=== PATIENT | female | born 1960 | race Two or more races ===

== ENCOUNTER 2024-01-02 18:08 | Inpatient (IN) | payer MEDICAID, OTHER ==
[~2024-01-02] VITALS: Ht 154.9 cm; Wt 71.6 kg
[2024-01-02] MEDS: DEXTROSE (50%) 50ML SYRG IV ONE (18:15)
[2024-01-02] MEDS: DEXTROSE 50% SYRINGE 50 ML IV ONE (18:36)
[2024-01-02 18:39] LABS: Basophils # (auto) 0.1 10 ^3/uL (0-0.2); Basophils % (auto) 0.6 % (0.0-2.0); Eosinophils # (auto) 0 10 ^3/uL (0-0.8); Eosinophils % (auto) 0.4 % (0.0-7.0); Hematocrit 39.3 % (36.0-46.0); Hemoglobin 12.9 g/dL (12.2-16.2); Lymphocytes # (auto) 1.9 10 ^3/uL (0.4-5.4); Lymphocytes % (auto) 17.5 % (10.0-50.0); Mean Corpuscular Hemoglobin 29.2 pg (28.0-32.0); Mean Corpuscular Hgb Conc. 32.8 g/dL (32.0-36.0); Monocytes # (auto) 1.1 10 ^3/uL (0-1.3); Monocytes % (auto) 9.9 % (0.0-12.0); Neutrophils % (auto) 71.6 % (37.0-80.0); Platelet Count (auto) 296 10^3/uL (140-450); Red Blood Cells 4.41 10^6/uL (4.0-5.20); Red Cell Distribution Width 14.3 % (11.8-14.3); White Blood Cell 11.1 10^3/uL (4.4-10.8)
[2024-01-02 18:56] LABS: Alanine Aminotransferase 20 U/L (7-40); Albumin 3.7 g/dL (3.2-4.8); Alkaline Phosphatase 70 U/L (46-116); Anion Gap 9 (5-15); Aspartate Aminotransferase 26 U/L (13-40); BUN/Creatinine Ratio 6.8 (10.0-20.0); Blood Urea Nitrogen 36 mg/dL (9-23); Carbon Dioxide 21 mmol/L (20-30); Chloride 105 mmol/L (98-107); Glucose 53 mg/dL (74-106); Potassium 4.8 mmol/L (3.5-5.1); Sodium 135 mmol/L (136-145)
[2024-01-02 18:57] LABS: Bilirubin, Total 0.3 mg/dL (0.2-1.0); Total Protein 6.7 g/dL (5.7-8.2)
[2024-01-02 19:02] VITALS: PULSE 88; RESP 20; O2SAT 97
[2024-01-02 20:00] VITALS: RESP 15; O2SAT 95
[2024-01-02] MEDS: D5W/SOD CHL 0.45% 1,000 ML IV ONE (22:19)
[2024-01-02] MEDS ORDERED: MORPHINE SULFATE INJ 2 MG/ml SYRG IV PRN (23:45)
[2024-01-02] MEDS ORDERED: NITROGLYCERIN 0.4 MG SL TAB SL PRN (23:45)
[2024-01-02] MEDS ORDERED: ACETAMINOPHEN 325 MG TAB PO PRN (23:45)
[2024-01-02] MEDS ORDERED: DOCUSATE SOD 100 MG CAP PO PRN (23:45)
[2024-01-02] MEDS ORDERED: HYDROcodone-ACET 5/325MG TAB PO PRN (23:45)
[2024-01-03] MEDS: InsuLIN REG 1unit/0.01ml Soln (100units/ml) SC SCH
[2024-01-03] MEDS: ACCU-CHEK COMFORT CURVE STRIP VI SCH
[2024-01-03] MEDS ORDERED: D5W/SOD CHL 0.45% 1,000 ML IV ONE (00:30)
[2024-01-03] MEDS: D5W/SOD CHLO 0.9% 1,000 ML IV SCH ×2 (00:56→12:26)
[2024-01-03] MEDS: DEXTROSE (50%) 50ML SYRG IV PRN (01:37)
[2024-01-03 06:16] LABS: Basophils # (auto) 0 10 ^3/uL (0-0.2); Basophils % (auto) 0.5 % (0.0-2.0); Eosinophils # (auto) 0 10 ^3/uL (0-0.8); Eosinophils % (auto) 0.4 % (0.0-7.0); Hematocrit 35.1 % (36.0-46.0); Hemoglobin 12.1 g/dL (12.2-16.2); Lymphocytes # (auto) 1.7 10 ^3/uL (0.4-5.4); Lymphocytes % (auto) 19.9 % (10.0-50.0); Mean Corpuscular Hemoglobin 30.5 pg (28.0-32.0); Mean Corpuscular Hgb Conc. 34.5 g/dL (32.0-36.0); Mean Corpuscular Volume 88.4 fL (80.0-100.0); Monocytes # (auto) 0.7 10 ^3/uL (0-1.3); Monocytes % (auto) 8.3 % (0.0-12.0); Neutrophils # (auto) 6.2 10 ^3/uL (1.6-8.6); Neutrophils % (auto) 70.9 % (37.0-80.0); Platelet Count (auto) 292 10^3/uL (140-450); Red Blood Cells 3.97 10^6/uL (4.0-5.20); Red Cell Distribution Width 14.3 % (11.8-14.3); White Blood Cell 8.7 10^3/uL (4.4-10.8)
[2024-01-03 06:33] LABS: Alanine Aminotransferase 17 U/L (7-40); Albumin 3.4 g/dL (3.2-4.8); Alkaline Phosphatase 61 U/L (46-116); Anion Gap 8 (5-15); Aspartate Aminotransferase 25 U/L (13-40); BUN/Creatinine Ratio 7.8 (10.0-20.0); Blood Urea Nitrogen 41 mg/dL (9-23); Calcium 8.8 mg/dL (8.7-10.4); Carbon Dioxide 21 mmol/L (20-30); Chloride 105 mmol/L (98-107); Glucose 101 mg/dL (74-106); Potassium 5.2 mmol/L (3.5-5.1); Sodium 134 mmol/L (136-145)
[2024-01-03 06:34] LABS: Bilirubin, Total 0.2 mg/dL (0.2-1.0); Total Protein 6.1 g/dL (5.7-8.2)
[2024-01-03 08:03] VITALS: PULSE 82; RESP 12; O2SAT 93
[2024-01-03 11:18] LABS: Magnesium 1.9 mg/dL (1.6-2.6)
[2024-01-03 11:19] LABS: Phosphorus 3.5 mg/dL (2.4-5.1)
[2024-01-03] MEDS: cefTRIAXone 1GM/50ML D5W 50 ML IV ONE (13:23)
[2024-01-03 13:27] LABS: Urine Bacteria FEW /hpf (None Seen); Urine Blood TRACE /uL (Negative); Urine Clarity Clear (Clear); Urine Protein, UAD TRACE (Negative); Urine Specific Gravity 1.007 (1.001-1.035); Urine Urobilinogen Normal (Negative); Urine WBC 5 /hpf (0 - 5)
[2024-01-03 13:28] LABS: Urine Color Light-Yellow (Yellow)
[2024-01-03 13:40] LABS: Protein, Urine 27.4 mg/dL (0.0-11.9)
[2024-01-03 13:42] LABS: Amphetamine Screen, Urine Neg (NEGATIVE); Barbiturate Scree,Urine Neg (NEGATIVE); Benzodiazephine Screen, Urine Neg (NEGATIVE); Cannabinoid Screen, Urine Neg (NEGATIVE); Cocaine Screen, Urine Neg (NEGATIVE); Opiate Scree,Urine Neg (NEGATIVE); Phencyclidine Screen, Urine Neg (NEGATIVE)
[2024-01-03 13:43] LABS: Creatinine, Urine 22.6 mg/dL (30.0-125.0); Creatinine, Urine 22.75 mg/dL (30.0-125.0); Urine Protein/Creatinine Ratio 1.21
[2024-01-03 19:50] VITALS: PULSE 87; RESP 87; O2SAT 95
[2024-01-04] VITALS (7 sets, daily range): BP systolic 100–139; BP diastolic 62–72; PULSE 81–102; RESP 15–18; TEMP 98.1–98.8; O2SAT 94–96
[2024-01-04 06:19] LABS: Basophils # (auto) 0.1 10 ^3/uL (0-0.2); Basophils % (auto) 0.8 % (0.0-2.0); Eosinophils # (auto) 0.1 10 ^3/uL (0-0.8); Eosinophils % (auto) 1.2 % (0.0-7.0); Hematocrit 35.9 % (36.0-46.0); Hemoglobin 12.4 g/dL (12.2-16.2); Lymphocytes # (auto) 1.8 10 ^3/uL (0.4-5.4); Lymphocytes % (auto) 24.3 % (10.0-50.0); Mean Corpuscular Hemoglobin 30.6 pg (28.0-32.0); Mean Corpuscular Hgb Conc. 34.4 g/dL (32.0-36.0); Mean Corpuscular Volume 88.8 fL (80.0-100.0); Monocytes # (auto) 0.8 10 ^3/uL (0-1.3); Monocytes % (auto) 11.1 % (0.0-12.0); Neutrophils # (auto) 4.7 10 ^3/uL (1.6-8.6); Neutrophils % (auto) 62.6 % (37.0-80.0); Nucleated Red Blood Cells % 0.1 %; Platelet Count (auto) 267 10^3/uL (140-450); Red Blood Cells 4.04 10^6/uL (4.0-5.20); Red Cell Distribution Width 14.6 % (11.8-14.3); White Blood Cell 7.5 10^3/uL (4.4-10.8)
[2024-01-04 06:37] LABS: Alanine Aminotransferase 15 U/L (7-40); Albumin 3.4 g/dL (3.2-4.8); Alkaline Phosphatase 54 U/L (46-116); Anion Gap 7 (5-15); Aspartate Aminotransferase 18 U/L (13-40); BUN/Creatinine Ratio 7.3 (10.0-20.0); Blood Urea Nitrogen 37 mg/dL (9-23); Calcium 8.2 mg/dL (8.7-10.4); Carbon Dioxide 23 mmol/L (20-30); Chloride 111 mmol/L (98-107); Potassium 4.6 mmol/L (3.5-5.1); Sodium 141 mmol/L (136-145)
[2024-01-04 06:38] LABS: Bilirubin, Total 0.3 mg/dL (0.2-1.0)
[2024-01-04 06:42] LABS: Glucose 139 mg/dL (74-106)
[2024-01-04 08:43] LABS: Hepatitis B Surface Antigen Negative (Negative)
[2024-01-04 09:04] LABS: Hepatitis C Antibody Negative (Negative)
[2024-01-04] MEDS: cefTRIAXone 1GM/50ML D5W 50 ML IV SCH (09:28)
[2024-01-04] MEDS ORDERED: GLIM2TAB33 PO (14:11)
[2024-01-04] MEDS ORDERED: METF-372 PO (14:11)
[2024-01-04] MEDS ORDERED: AMLO1TAB23 PO (14:11)
[2024-01-04] MEDS: ERGOCALCIFEROL 50,000 UNIT(1.25MG) CAP PO SCH (16:24)
[2024-01-04] MEDS: SOD CHL 0.45% 1,000 ML IV SCH (16:25)
[2024-01-05] VITALS (8 sets, daily range): BP systolic 98–142; BP diastolic 45–76; PULSE 75–97; RESP 16–21; TEMP 97.8–98.6; O2SAT 93–98
[2024-01-05 06:47] LABS: Chloride 108 mmol/L (98-107); Sodium 139 mmol/L (136-145)
[2024-01-05 06:48] LABS: Anion Gap 6 (5-15); Calcium 8.6 mg/dL (8.7-10.4); Carbon Dioxide 25 mmol/L (20-30)
[2024-01-05 06:53] LABS: Glucose 121 mg/dL (74-106)
[2024-01-05 06:54] LABS: BUN/Creatinine Ratio 10.7 (10.0-20.0); Blood Urea Nitrogen 42 mg/dL (9-23)
[2024-01-05] MEDS ORDERED: DEXTROSE (50%) 50ML SYRG IV PRN (16:15)
[2024-01-05] MEDS ORDERED: ACCU-CHEK COMFORT CURVE STRIP VI SCH ×2 (17:00)
[2024-01-05] MEDS: InsuLIN REG 1unit/0.01ml Soln (100units/ml) SC SCH ×2 (18:01→21:26)
[2024-01-05] MEDS: ACCU-CHEK COMFORT CURVE STRIP VI SCH (18:01)
[2024-01-06] VITALS (8 sets, daily range): BP systolic 121–141; BP diastolic 59–73; PULSE 61–82; RESP 16–20; TEMP 97.9–98.6; O2SAT 95–98
[2024-01-06 07:42] LABS: Anion Gap 10 (5-15); Carbon Dioxide 23 mmol/L (20-30); Chloride 106 mmol/L (98-107); Potassium 3.6 mmol/L (3.5-5.1); Sodium 139 mmol/L (136-145)
[2024-01-06 07:49] LABS: BUN/Creatinine Ratio 13.9 (10.0-20.0); Blood Urea Nitrogen 41 mg/dL (9-23); Glucose 118 mg/dL (74-106)
[2024-01-06] MEDS: ONDANSETRON HCL 4 MG/2 ML VIAL IV PRN (10:06)
[2024-01-07] VITALS (8 sets, daily range): BP systolic 116–142; BP diastolic 50–70; PULSE 67–83; RESP 16–20; TEMP 97.8–98.8; O2SAT 95–98
[2024-01-07 06:45] LABS: Anion Gap 8 (5-15); Carbon Dioxide 24 mmol/L (20-30); Chloride 108 mmol/L (98-107); Sodium 140 mmol/L (136-145)
[2024-01-07 06:46] LABS: Calcium 9.2 mg/dL (8.7-10.4)
[2024-01-07 06:51] LABS: BUN/Creatinine Ratio 15.6 (10.0-20.0); Blood Urea Nitrogen 40 mg/dL (9-23); Glucose 127 mg/dL (74-106)
[2024-01-08] VITALS (8 sets, daily range): BP systolic 124–153; BP diastolic 58–76; PULSE 73–81; RESP 14–17; TEMP 97.8–98.4; O2SAT 95–96
[2024-01-08 06:53] LABS: Calcium 9.2 mg/dL (8.7-10.4); Chloride 110 mmol/L (98-107); Potassium 3.7 mmol/L (3.5-5.1); Sodium 140 mmol/L (136-145)
[2024-01-08 06:54] LABS: Anion Gap 8 (5-15); Carbon Dioxide 22 mmol/L (20-30)
[2024-01-08 06:59] LABS: BUN/Creatinine Ratio 17.9 (10.0-20.0); Blood Urea Nitrogen 34 mg/dL (9-23); Glucose 141 mg/dL (74-106)
[2024-01-09] VITALS (7 sets, daily range): BP systolic 138–166; BP diastolic 69–81; PULSE 72–79; RESP 16–18; TEMP 97.5–98.3; O2SAT 95–99
[2024-01-09 06:43] LABS: Anion Gap 7 (5-15); Calcium 9.2 mg/dL (8.7-10.4); Carbon Dioxide 25 mmol/L (20-30); Chloride 108 mmol/L (98-107); Potassium 3.6 mmol/L (3.5-5.1); Sodium 140 mmol/L (136-145)
[2024-01-09 06:48] LABS: BUN/Creatinine Ratio 17.5 (10.0-20.0); Blood Urea Nitrogen 30 mg/dL (9-23); Glucose 145 mg/dL (74-106)
[2024-01-10] VITALS (7 sets, daily range): BP systolic 107–155; BP diastolic 55–71; PULSE 57–79; RESP 15–20; TEMP 98–98.3; O2SAT 93–98
[2024-01-10 06:26] LABS: Calcium 9.2 mg/dL (8.7-10.4); Chloride 108 mmol/L (98-107); Potassium 3.4 mmol/L (3.5-5.1); Sodium 139 mmol/L (136-145)
[2024-01-10 06:27] LABS: Anion Gap 7 (5-15); Carbon Dioxide 24 mmol/L (20-30)
[2024-01-10 06:32] LABS: BUN/Creatinine Ratio 19.6 (10.0-20.0); Blood Urea Nitrogen 29 mg/dL (9-23); Glucose 185 mg/dL (74-106)
[2024-01-10] MEDS: POTASSIUM EFFERVESENT TAB 25 MEQ PO ONE (11:18)
[2024-01-11] VITALS (8 sets, daily range): BP systolic 135–156; BP diastolic 60–84; PULSE 63–78; RESP 16–18; TEMP 97.8–98.6; O2SAT 94–99
[2024-01-11 06:17] LABS: Chloride 110 mmol/L (98-107); Potassium 3.9 mmol/L (3.5-5.1); Sodium 141 mmol/L (136-145)
[2024-01-11 06:18] LABS: Anion Gap 6 (5-15); Carbon Dioxide 25 mmol/L (20-30)
[2024-01-11 06:19] LABS: Calcium 9.2 mg/dL (8.7-10.4)
[2024-01-11 06:23] LABS: BUN/Creatinine Ratio 17.2 (10.0-20.0); Blood Urea Nitrogen 27 mg/dL (9-23); Glucose 157 mg/dL (74-106)
[2024-01-12 01:00] VITALS: BP 121/67; PULSE 79; RESP 15; TEMP 98.1; O2SAT 98
[2024-01-12 05:00] VITALS: BP 129/73; PULSE 77; RESP 15; TEMP 97.9; O2SAT 96
[2024-01-12 08:00] VITALS: PULSE 77; PULSE 80; RESP 16; O2SAT 96
[2024-01-12 08:30] VITALS: BP 143/70; PULSE 79; RESP 20; TEMP 98.1; O2SAT 97
[2024-01-12 08:30] LABS: Chloride 105 mmol/L (98-107); Potassium 3.8 mmol/L (3.5-5.1); Sodium 138 mmol/L (136-145)
[2024-01-12 08:31] LABS: Anion Gap 5 (5-15); Calcium 9.9 mg/dL (8.7-10.4); Carbon Dioxide 28 mmol/L (20-30)
[2024-01-12 08:36] LABS: BUN/Creatinine Ratio 16.9 (10.0-20.0); Blood Urea Nitrogen 22 mg/dL (9-23); Glucose 173 mg/dL (74-106)
[2024-01-12 12:30] VITALS: BP 136/72; PULSE 74; RESP 20; TEMP 98.2; O2SAT 97
[2024-01-12] MEDS ORDERED: GLIP5TAB21 PO (13:27)
[2024-01-12] MEDS: glipiZIDE 5 MG TAB PO ONE (15:46)
[2024-01-12 17:15] VITALS: BP 151/77; PULSE 74; RESP 17; TEMP 98.1; O2SAT 98
[2024-01-12] MEDS: glipiZIDE 5 MG TAB PO SCH (18:00)
== END 2024-01-12 18:00 | disposition home or self-care (01) | DRG 637 ==
LOC: EDBD 18:08 → ER 18:08 → TELE 23:47 → EDBD 23:47 → TELE-WESTW 01-04 06:48
PROVIDERS: ADMIT Nurse Practitioner Family; ATTEND Internal Medicine Geriatric Medicine
DX: E11.649 Type 2 diabetes mellitus with hypoglycemia without coma (principal); G93.41 Metabolic encephalopathy; N13.30 Unspecified hydronephrosis; F17.200 Nicotine dependence, unspecified, uncomplicated; N17.0 Acute kidney failure with tubular necrosis; E11.22 Type 2 diabetes mellitus with diabetic chronic kidney disease; E55.9 Vitamin D deficiency, unspecified; N18.9 Chronic kidney disease, unspecified; I12.9 Hypertensive chronic kidney disease with stage 1 through stage 4 chronic kidney disease, or unspecified chronic kidney disease; R33.9 Retention of urine, unspecified; E87.6 Hypokalemia; D72.829 Elevated white blood cell count, unspecified; Z83.3 Family history of diabetes mellitus
CPT/HCPCS: 36415; 70450; 71045; 74176; 76775; 80048; 80053; 80307; 80320; 81001; 82140; 82306; 82550; 82570; 82962; 83036; 83605; 83735; 83880; 83970; 84100; 84156; 84300; 85025; 86803; 87040; 87081; 87086; 87340; 93005; 96365; 97110; 97116; 97163; 97530; 99291; G0378; J1815; J2405